=== PATIENT | male | born 1945 | race African-American/Black ===

== ENCOUNTER → 2023-07-29 13:05 | Outpatient (CLI) | payer OTHER, SELFPAY ==
--- NOTE | 2023-07-29 13:08 | DI.ECHO.S_ITS ---
[facility] +---------+ : : [address] : : : : [id number] : : : : Phone: [phone]---------+ Echocardiogram Report + + :Name: MIRANDA PINTO Study Date: 07/29/2023 Height: 74 in : :[facility] ReadingLocation: Weight: 205 lb : : Gender: Male BSA: 2.2 m2 : :: 1945 Age: 77 yrs BP: 113/67 mmHg: :Reason For Study: SCREENING, ATRIAL FIBRILLATION : :Ordering Physician: DARREL, : :AISHA Performed By: Fawn Arreola : :Referring: AISHA ROJO : + + Interpretation Summary There is mild concentric left ventricular hypertrophy. The ejection fraction is estimated to be 35-40%. There is a significant dyssynchronous contraction pattern, consistent with a conduction abnormality. Diastolic function could not be accurately assessed due to atrial fibrillation. The left atrium is moderately dilated. The right ventricle is normal in size and function. The right atrium is mildly dilated. There is mild mitral regurgitation. The right ventricular systolic pressure is estimated to be at least 24 mmHg based on an estimated right atrial pressure of 3 mm Hg. Procedure: A two-dimensional transthoracic echocardiogram with color flow and Doppler was performed. The study quality was technically adequate. There is no prior echocardiogram noted for this patient. The patient had a bundle branch block rhythm during the exam. The patient was in atrial fibrillation with heart rates between 64-72 bpm during the exam. Left Ventricle: The left ventricle is normal in size. There is mild concentric left ventricular hypertrophy. The ejection fraction is estimated to be 35-40%. There is a significant dyssynchronous contraction pattern, consistent with a conduction abnormality. Diastolic function could not be accurately assessed due to atrial fibrillation. Right Ventricle: The right ventricle is normal in size and function. Atria: The left atrium is moderately dilated. The right atrium is mildly dilated. Mitral Valve: The mitral valve is normal. There is mild mitral regurgitation. Aortic Valve: The aortic valve is trileaflet. The aortic valve opens well. There is no aortic valve stenosis. No aortic regurgitation is present. Tricuspid Valve: The tricuspid valve is normal in structure and function. There is mild tricuspid regurgitation. The right ventricular systolic pressure is estimated to be at least 24 mmHg based on an estimated right atrial pressure of 3 mm Hg. Pulmonic Valve: The pulmonic valve leaflets are thin and pliable; valve motion is normal. There is mild pulmonic regurgitation. Great Vessels: The aortic root is normal size. The dimensions of the ascending aorta are normal. The IVC is of normal diameter and collapses greater than 50% with a sniff. This suggests a low right atrial pressure of 3 mm Hg. Pericardium/ Pleura There is no pericardial effusion. There is no pleural effusion. MMode/2D Measurements & Calculations LVIDd: 5.1 cm LVOT diam: 2.2 cm LVIDs: 4.4 cm Ao root diam: 3.3 cm FS: 14.2 % asc Aorta Diam: 3.5 cm EPSS: 1.3 cm Ao Arch Diam (Prox Trans): 3.2 cm IVSd: 1.1 cm LVPWd: 1.2 cm LV qureshi. diameter/BSA (cm/m^2): 2.3 LV sys. diameter/BSA (cm/m^2): 2.0 LA A2 area: 26.8 cm2 RA long axis: 5.3 cm LA A4 area: 27.9 cm2 RA area: 21.9 cm2 LA length (vol): 6.5 cm RA vol: 76.9 ml LA vol: 98.3 ml RA : 35.0 ml/m2 LA vol index: 44.8 ml/m2 IVC diam: 1.7 cm RVD1 (basal): 3.6 cm RVD2 (mid): 3.3 cm TAPSE: 1.7 cm Doppler Measurements & Calculations Ao V2 max: 131.0 cm/sec LVOT Max Sy: 61.8 cm/sec Ao V2 mean: 98.9 cm/sec LV V1 max P.5 mmHg Ao max P.9 mmHg LV V1 VTI: 12.8 cm Ao mean P.2 mmHg GUSTAVO(I,D): 1.7 cm2 Ao V2 VTI: 27.5 cm GUSTAVO(V,D): 1.7 cm2 sev ratio: 0.47 GUSTAVO indexed to BSA (cm^2/m^2): 0.77 MV E max sy: 57.8 cm/sec TR max sy: 226.5 cm/sec MV A max sy: 1.4 cm/sec TR max P.5 mmHg MV E/A: 40.9 PA V2 max: 79.5 cm/sec Med Peak E' Sy: 4.0 cm/sec PA V2 mean: 50.5 cm/sec E/E' med: 14.4 PA mean P.2 mmHg Lat Peak E' Sy: 7.7 cm/sec PA pr(Accel): 39.6 mmHg E/E' lat: 7.5 E/e' average: 11.0 MV dec time: 0.27 sec SV(LVOT): 46.5 ml Reading Physician:03:10 PM
== END ==
PROVIDERS: PCP Internal Medicine
DX: Z00.00 Encounter for general adult medical examination without abnormal findings (principal); I08.1 Rheumatic disorders of both mitral and tricuspid valves
CPT/HCPCS: 93306